=== PATIENT | female | born 1995 | race Two or more races ===

== ENCOUNTER 2017-08-15 09:41 | Inpatient (IN) | payer MEDICAID, OTHER ==
[~2017-08-15] VITALS: Ht 162.6 cm; Wt 61.5 kg
[2017-08-15] MEDS ORDERED: ONDANSETRON 2MG/ML, 2ML IVP ONE (10:30)
[2017-08-15] MEDS ORDERED: SODIUM CHLORIDE 0.9% 1,000ML IVBOLUS ONE (10:30)
[2017-08-15] MEDS ORDERED: SODIUM CHLORIDE 0.9% 1,000 ML IV ONE ×2 (10:30→13:15)
[2017-08-15] MEDS ORDERED: MORPHINE SULFATE 4 MG/ML, 1ML IVPush PRN (10:30)
[2017-08-15] MEDS ORDERED: SODIUM CHLORIDE FLUSH 10ML SYR IVF ONE (10:30)
[2017-08-15 11:01] LABS: RAPID INFLUENZA A Negative (Negative); RAPID INFLUENZA B Negative (Negative)
[2017-08-15] MEDS ORDERED: LIDOCAINE 1%, 20ML ONE (11:04)
[2017-08-15 11:07] LABS: HEMATOCRIT 41.9 % (34.6-47.8); HEMOGLOBIN 14.1 g/dL (11.7-16.4); WHITE BLOOD COUNT 8.2 x10^3/uL (3.4-10)
[2017-08-15 11:21] LABS: BLOOD UREA NITROGEN 9 mg/dL (7-18)
[2017-08-15 11:27] LABS: ASPARTATE AMINO TRANSFERASE 11 U/L (15-37)
[2017-08-15 11:42] LABS: GLUCOSE, CSF 55 mg/dL (40-80)
[2017-08-15] MEDS ORDERED: CEFTRIAXONE PMX 2GM/50ML 50 ML IV ONE (13:00)
[2017-08-15] MEDS ORDERED: CEFTRIAXONE PMX 2GM/50ML 50 ML ONE (13:04)
[2017-08-15] MEDS ORDERED: ACETAMINOPHEN 500 MG TABLET ONE (13:14)
[2017-08-15] MEDS ORDERED: ALPR-475 PO (13:17)
[2017-08-15] MEDS ORDERED: ACETAMINOPHEN 500 MG TABLET PO ONE (13:30)
[2017-08-15] MEDS ORDERED: SODIUM CHLORIDE FLUSH 10ML SYR IVF PRN (13:30)
[2017-08-15] MEDS: SODIUM CHLORIDE 0.9% 1,000 ML IV SCH (14:08)
[2017-08-15] MEDS ORDERED: DOCUSATE 100 MG CAPSULE PO PRN (14:30)
[2017-08-15] MEDS ORDERED: POLYETHYLENE GLYCOL 17 GM PACKET PO PRN (14:30)
[2017-08-15] MEDS ORDERED: HYDROcodone/APAP 5/325 TABLET PO PRN (14:30)
[2017-08-15] MEDS ORDERED: LABETALOL 5MG/ML, 20ML IVPush PRN (14:30)
[2017-08-15] MEDS ORDERED: ONDANSETRON 2MG/ML, 2ML IVPush PRN (14:30)
[2017-08-15] MEDS ORDERED: ACETAMINOPHEN 325 MG TABLET PO PRN (14:30)
[2017-08-15] MEDS ORDERED: BISACODYL 10 MG SUPP PR PRN (14:30)
[2017-08-15] MEDS: ASA/APAP/ CAFFEINE TABLET PO PRN ×3 (16:59→22:31)
[2017-08-15 17:12] VITALS: BP 111/72
[2017-08-15 22:00] VITALS: BP 123/78
[2017-08-16] MEDS: CEFTRIAXONE 2 GM in SODIUM CHLORIDE 0.9% 50 ML IVPB SCH ×2 (00:53→13:41)
[2017-08-16 00:58] VITALS: BP 110/77
[2017-08-16 05:34] LABS: HEMATOCRIT 35.4 % (34.6-47.8); HEMOGLOBIN 12.3 g/dL (11.7-16.4); WHITE BLOOD COUNT 9.7 x10^3/uL (3.4-10)
[2017-08-16 05:37] LABS: BLOOD UREA NITROGEN 9 mg/dL (7-18)
[2017-08-16] MEDS: SODIUM CHLORIDE 0.9% 1,000 ML IV SCH ×2 (06:00→20:29)
[2017-08-16 07:12] VITALS: BP 119/75
[2017-08-16] MEDS: ASA/APAP/ CAFFEINE TABLET PO PRN ×3 (11:23→23:56)
[2017-08-16 12:58] VITALS: BP 121/76
[2017-08-16] MEDS: ONDANSETRON ODT 4 MG PO PRN ×2 (13:44→18:22)
[2017-08-16] MEDS ORDERED: ENOXAPARIN 40 MG/0.4 ML SQ SCH (16:00)
[2017-08-16 20:30] VITALS: BP 117/77
[2017-08-17] MEDS: CEFTRIAXONE 2 GM in SODIUM CHLORIDE 0.9% 50 ML IVPB SCH (01:25)
[2017-08-17 03:31] VITALS: BP 108/60
[2017-08-17] MEDS: ASA/APAP/ CAFFEINE TABLET PO PRN (07:32)
[2017-08-17 08:45] VITALS: BP 117/77
[2017-08-17] MEDS ORDERED: AMOX500T PO (09:42)
[2017-08-18 16:07] LABS: POLIOVIRUS ANTIBODIES 1:16 (Neg:<1:8)
[2017-08-19 10:07] LABS: WEST NILE VIRUS IGG CSF Negative (Negative); WEST NILE VIRUS IGM CSF Negative (Negative)
== END 2017-08-17 13:05 | disposition home or self-care (01) | DRG 76 ==
LOC: ED 11:27 → EDIP 13:15 → 3NE 14:57
PROVIDERS: ADMIT Hospitalist; ATTEND Hospitalist
PROC: 009U3ZX Drainage of Spinal Canal, Percutaneous Approach, Diagnostic (ICD-10-PCS; principal; 2017-08-15)
DX: A87.9 Viral meningitis, unspecified (principal); B95.1 Streptococcus, group B, as the cause of diseases classified elsewhere; J02.0 Streptococcal pharyngitis
CPT/HCPCS: 36415; 62270; 70450; 71010; 80048; 80053; 81003; 82945; 83605; 84157; 84703; 85025; 86308; 86658; 86788; 86789; 87040; 87070; 87081; 87147; 87205; 87252; 87400; 87529; 87880; 89051; 96361; 96365; J0696; J1650; J2405; Q0162; J7030

== ENCOUNTER → 2018-07-13 | Outpatient (CLI) | payer OTHER ==
[~2018-07-13] MED LIST: ALPR-475 PO; AMOX500T PO
[2018-07-13 15:01] LABS: BASOPHILS # (AUTO) 0.05 x10^3/uL (0-0.1); BASOPHILS % (AUTO) 1 % (0-1); EOSINOPHILS # (AUTO) 0.11 x10^3/uL (0-0.4); EOSINOPHILS % (AUTO) 2 % (1-7); LYMPHOCYTES # (AUTO) 2.52 x10^3/uL (1-3.4); LYMPHOCYTES % (AUTO) 34 % (22-44); MD NO; MEAN CORPUSCULAR HEMOGLOBIN 31.8 pg (27.0-34.8); MEAN CORPUSCULAR HGB CONC 34.4 g/dL (32.4-35.8); MEAN CORPUSCULAR VOLUME 92.7 fL (80-100); MEAN PLATELET VOLUME 8.3 fL (7.4-10.4); MONOCYTES # (AUTO) 0.58 x10^3/uL (0.2-0.8); MONOCYTES % (AUTO) 8 % (2-9); NEUTROPHILS # (AUTO) 4.16 x10^3/uL (1.8-6.8); NEUTROPHILS % (AUTO) 56 % (42-75); PLATELET COUNT 291 x10^3/uL (130-400); RED BLOOD COUNT 4.29 x10^6/uL (3.82-5.3); RED CELL DISTRIBUTION WIDTH 12.5 % (9.6-15.2)
[2018-07-13 15:05] LABS: ALANINE AMINOTRANSFERASE 19 U/L (12-78); ALBUMIN 4.1 g/dL (3.4-5.0); ANION GAP 8 mmol/L (5-15); CALCIUM 8.7 mg/dL (8.5-10.1); CHLORIDE 108 mmol/L (98-107)
[2018-07-13 15:58] LABS: ALKALINE PHOSPHATASE 73 U/L (45-117); BILIRUBIN,TOTAL 0.3 mg/dL (0.2-1.0)
[2018-07-13 16:05] LABS: FOLATE LEVEL > 20.0 ng/mL (3.1-17.5)
== END | disposition home or self-care (01) ==
LOC: RAD 14:38
PROVIDERS: ATTEND Internal Medicine
DX: M54.5 Low back pain (principal); E07.9 Disorder of thyroid, unspecified; R53.83 Other fatigue
CPT/HCPCS: 36415; 72072; 72110; 80053; 82306; 82607; 82746; 84443; 85025

== ENCOUNTER → 2018-08-15 | Outpatient (CLI) | payer OTHER | END | disposition home or self-care (01) | LOC: CFH 10:39 | PROVIDERS: ATTEND Internal Medicine | DX: E04.1 Nontoxic single thyroid nodule (principal) | CPT/HCPCS: 76536 ==

== ENCOUNTER → 2019-11-27 | Outpatient (CLI) | payer OTHER ==
[~2019-11-27] MED LIST changes: -ALPR-475 PO; +ALPR0.5T7 PO
[2019-11-27 09:59] LABS: BASOPHILS # (AUTO) 0.05 x10^3/uL (0-0.1); BASOPHILS % (AUTO) 1 % (0-1); EOSINOPHILS # (AUTO) 0.12 x10^3/uL (0-0.4); EOSINOPHILS % (AUTO) 1 % (1-7); LYMPHOCYTES # (AUTO) 2.65 x10^3/uL (1-3.4); LYMPHOCYTES % (AUTO) 32 % (22-44); MD NO; MEAN CORPUSCULAR HEMOGLOBIN 32.1 pg (27.0-34.8); MEAN CORPUSCULAR HGB CONC 33.8 g/dL (32.4-35.8); MEAN PLATELET VOLUME 7.5 fL (7.4-10.4); MONOCYTES # (AUTO) 0.57 x10^3/uL (0.2-0.8); MONOCYTES % (AUTO) 7 % (2-9); NEUTROPHILS # (AUTO) 4.84 x10^3/uL (1.8-6.8); NEUTROPHILS % (AUTO) 59 % (42-75); PLATELET COUNT 390 x10^3/uL (130-400); RED BLOOD COUNT 4.49 x10^6/uL (3.82-5.3)
[2019-11-27 10:09] LABS: ALANINE AMINOTRANSFERASE 25 U/L (12-78); ALBUMIN 3.9 g/dL (3.4-5.0); ANION GAP 6 mmol/L (5-15); CHLORIDE 108 mmol/L (98-107); CREATININE 0.68 mg/dL (0.55-1.02)
[2019-11-27 10:19] LABS: ALKALINE PHOSPHATASE 74 U/L (45-117); BILIRUBIN,TOTAL 0.5 mg/dL (0.2-1.0)
== END | disposition home or self-care (01) ==
LOC: LAB 09:47
PROVIDERS: ATTEND Internal Medicine
DX: E55.9 Vitamin D deficiency, unspecified (principal); M79.10 Myalgia, unspecified site; R53.83 Other fatigue
CPT/HCPCS: 36415; 80053; 82306; 84443; 85025; 86038; 86225; 86235

== ENCOUNTER 2020-07-04 07:23 | Outpatient (CLI) | payer OTHER ==
[2020-07-04 07:41] LABS: BASOPHILS # (AUTO) 0.03 x10^3/uL (0-0.1); BASOPHILS % (AUTO) 1 % (0-1); EOSINOPHILS # (AUTO) 0.12 x10^3/uL (0-0.4); EOSINOPHILS % (AUTO) 2 % (1-7); LYMPHOCYTES # (AUTO) 2.03 x10^3/uL (1-3.4); LYMPHOCYTES % (AUTO) 31 % (22-44); MD NO; MEAN CORPUSCULAR HEMOGLOBIN 31.9 pg (27.0-34.8); MEAN CORPUSCULAR HGB CONC 33.6 g/dL (32.4-35.8); MEAN CORPUSCULAR VOLUME 94.9 fL (80-100); MEAN PLATELET VOLUME 8.1 fL (7.4-10.4); MONOCYTES # (AUTO) 0.38 x10^3/uL (0.2-0.8); MONOCYTES % (AUTO) 6 % (2-9); NEUTROPHILS # (AUTO) 3.93 x10^3/uL (1.8-6.8); NEUTROPHILS % (AUTO) 61 % (42-75); PLATELET COUNT 313 x10^3/uL (130-400); RED BLOOD COUNT 4.12 x10^6/uL (3.82-5.3); RED CELL DISTRIBUTION WIDTH 12.2 % (9.6-15.2)
[2020-07-04 07:42] LABS: HCT (SEDRATE) 39.2 % (34.6-47.8)
[2020-07-04 07:51] LABS: MICROSCOPIC NOT IND
[2020-07-04 07:55] LABS: ANION GAP 7 mmol/L (5-15); CALCIUM 8.8 mg/dL (8.5-10.1); CHLORIDE 106 mmol/L (98-107); CHOLESTEROL, TOTAL 150 mg/dL (140-239)
[2020-07-04 08:20] LABS: % IRON SATURATION 45 % (20-55); ALANINE AMINOTRANSFERASE 27 U/L (12-78); ALKALINE PHOSPHATASE 68 U/L (45-117); BILIRUBIN,TOTAL 0.5 mg/dL (0.2-1.0); CHOL/HDL RATIO 3.3; HDL CHOL % 30 % (28-40); HDL CHOLESTEROL (DIRECT) 45 mg/dL (40-60); IRON LEVEL 133 mcg/dL (50-170); LDL CHOLESTEROL,CALCULATED 44 mg/dL (54-169); TOTAL IRON BINDING CAPACITY 293 mcg/dL (250-450); TOTAL PROTEIN 7.9 g/dL (6.4-8.2); TRIGLYCERIDES 306 mg/dL (50-200); VLDL CHOLESTEROL 61 mg/dL (0-25)
[2020-07-04 08:21] LABS: T4 (THYROXINE) 12.6 mcg/dL (4.8-13.9)
[2020-07-08 16:43] LABS: ANA SCREEN NEGATIVE (Negative)
== END 2020-07-04 23:59 | disposition home or self-care (01) ==
LOC: LAB 07:23
PROVIDERS: ATTEND Nurse Practitioner Family
DX: R76.8 Other specified abnormal immunological findings in serum (principal); R53.82 Chronic fatigue, unspecified; M25.50 Pain in unspecified joint; Z86.2 Personal history of diseases of the blood and blood-forming organs and certain disorders involving the immune mechanism
CPT/HCPCS: 36415; 80053; 80061; 81003; 82306; 82607; 83036; 83540; 83550; 84436; 84443; 84481; 84550; 85025; 85651; 86038; 86376

== ENCOUNTER → 2020-07-29 | Outpatient (CLI) | payer OTHER | END | disposition home or self-care (01) | LOC: LAB 10:23 | PROVIDERS: ATTEND Obstetrics & Gynecology | DX: Z30.9 Encounter for contraceptive management, unspecified (principal) | CPT/HCPCS: 36415; 84702 ==